=== PATIENT | male | born 1990 | race Caucasian/White ===

== ENCOUNTER 2017-03-12 10:58 | Emergency (ER) | payer OTHER | END 2017-03-12 12:48 | disposition home or self-care (01) | LOC: FER 10:58 | DX: S06.0X9A Concussion with loss of consciousness of unspecified duration, initial encounter (principal); S91.321A Laceration with foreign body, right foot, initial encounter; F90.9 Attention-deficit hyperactivity disorder, unspecified type; Z23 Encounter for immunization; V49.40XA Driver injured in collision with unspecified motor vehicles in traffic accident, initial encounter | CPT/HCPCS: 70450; 71010; 72125; 72170; 73610; 90471; 90715 ==

== ENCOUNTER 2020-10-23 08:49 | Emergency (ER) | payer OTHER ==
[~2020-10-23 08:49] MED LIST: BACTROBAN NASAL1 GM; CLEOCIN300 MG PO
== END 2020-10-23 09:17 | disposition home or self-care (01) ==
LOC: FER 08:49
DX: Z02.9 Encounter for administrative examinations, unspecified (principal); F17.200 Nicotine dependence, unspecified, uncomplicated
CPT/HCPCS: 99282